=== PATIENT | female | born 1995 ===

== ENCOUNTER 2019-01-04 21:33 | Emergency (ER) | payer SELFPAY ==
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
[2019-01-04 23:02] VITALS: BP 146/83
--- NOTE | 2019-01-05 00:18 | Cat Scan Report ---
Head CT without intravenous contrast INDICATION: Headache and neck pain COMPARISON: None FINDINGS: The ventricles are normal in size and position. No hemorrhage or extra-axial fluid collecti on. No edema or mass effect. No focal infarct seen. Portions of the sinuses visualized are clear. No skull fracture identified. IMPRESSION: Negative head CT Automated exposure control was utilized to diminish radiation dose Signer Name: Lul Frye MD Signed: 01/05/2019 12:13 AM Workstation Name: [id number]
--- NOTE | 2019-01-05 01:19 | Cat Scan Report ---
CT NECK 01/04/2019 HISTORY: Neck pain. FINDINGS: Unenhanced CT images of the soft tissues of the neck were obtained. Images are evaluated in the axial, coronal, and sagittal planes. Is no evidence of acute abnormality. Vertebral body alignment is normal no evidence of acute traumatic injury. Paraspinal soft tissues and soft tissues of the are unremarkable. There is no evidence of abnormal ne ck mass, fluid collection, or inflammation. Scattered normal-sized lymph nodes are present bilaterally. IMPRESSION: No acute or significant abnormality. All CT scans at this location are performed using dose reduction to ALARA by means of automated expos ure control. Signer Name: Kedar Harpre MD Signed: 01/05/2019 1:15 AM Workstation Name: [id number]
[2019-01-05] MEDS ORDERED: PERCOCET 5/325 PO ONE (04:18)
[2019-01-05] MEDS ORDERED: ZOFRAN ODT PO ONE (04:18)
[2019-01-05] MEDS ORDERED: TORADOL IM ONE (04:18)
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
== END 2019-01-05 04:45 | disposition home or self-care (01) ==
LOC: ED 21:33
DX: J01.10 Acute frontal sinusitis, unspecified (principal); M62.838 Other muscle spasm
CPT/HCPCS: 70450; 70490; 96372; 99283; J1885; Q0162

== ENCOUNTER 2020-05-03 22:02 | Emergency (ER) | payer SELFPAY ==
[2020-05-03 22:38] VITALS: BP 122/76
[2020-05-03] MEDS ORDERED: ONDANSETRON 4 MG ODT TAB PO ONE (23:54)
[2020-05-03] MEDS ORDERED: oxyCODONE /ACETAMINOPHEN 5-325MG TAB PO ONE (23:54)
[2020-05-03] MEDS ORDERED: predniSONE 20 MG TAB PO ONE (23:54)
[2020-05-03] MEDS ORDERED: IBUPROFEN 600 MG TAB PO ONE (23:54)
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
== END 2020-05-04 01:20 | disposition home or self-care (01) ==
LOC: ED 22:02
DX: S86.911A Strain of unspecified muscle(s) and tendon(s) at lower leg level, right leg, initial encounter (principal); M19.09 Primary osteoarthritis, other specified site; M62.838 Other muscle spasm; Z79.899 Other long term (current) drug therapy; X58.XXXA Exposure to other specified factors, initial encounter; Y93.89 Activity, other specified; Y92.89 Other specified places as the place of occurrence of the external cause; Y99.8 Other external cause status
CPT/HCPCS: 99283; J7512; Q0162

== ENCOUNTER 2021-01-01 19:10 | Outpatient (CLI) | payer MEDICAID ==
[2021-01-02] MEDS ORDERED: LACTATED RINGERS 1,000 ML IV ONE (01:48)
[2021-01-02 02:15] LABS: Bilirubin,Urine NEG (Negative); Blood,Urine NEG (Negative); Color,Urine Yellow (Yellow); Mucus,Urine 3+ /HPF
[2021-01-02 02:22] LABS: Amphetamine Screen,Urine PRESUMPTIVE NEGATIVE; Benzodiazepines Screen,Urine PRESUMPTIVE NEGATIVE; Cannabinoid Screen,Urine PRESUMPTIVE POSITIVE; Cocaine Screen,Urine PRESUMPTIVE NEGATIVE; Methadone Screen,Urine PRESUMPTIVE NEGATIVE; Opiate Screen,Urine PRESUMPTIVE NEGATIVE
[2021-01-02] MEDS ORDERED: MAGNESIUM HYDROXIDE (MOM) ORAL LIQD UDC PO PRN (05:17)
[2021-01-02] MEDS ORDERED: ACETAMINOPHEN 325 MG TAB PO PRN (05:17)
[2021-01-02] MEDS ORDERED: ONDANSETRON 4 MG/2 ML INJ IV PRN (05:17)
[2021-01-02] MEDS ORDERED: DOCUSATE SODIUM 100 MG CAP PO PRN (05:17)
[2021-01-02] MEDS ORDERED: SIMETHICONE 80 MG CHEW TAB PO PRN (05:17)
[2021-01-02] MEDS ORDERED: ALUM-MAG HYDROXIDE-SIMETHICONE 200-200-20MG/5ML ORAL LIQD 30 ML PO PRN (05:17)
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
--- NOTE | 2021-01-02 06:54 | Ultrasound Report ---
ULTRASOUND OBSTETRIC LIMITED ULTRASOUND BIOPHYSICAL PROFILE INDICATION / CLINICAL INFORMATION: wellbeing. Clinical Gestational Age (GA) in weeks, days: 32, 1 TECHNIQUE: Transabdominal. COMPARISON: None available. FINDINGS: BREATHING MOVEMENT = 2 GROSS BODY MOVEMENT = 2 TONE = 2 QUALITATIVE AMNIOTIC FLUID VOLUME = 2 TOTAL BIOPHYSICAL SCORE = 8/8 HEART RATE (beats per minute): 138 AMNIOTIC FLUID INDEX (cm) = 5.4 (normal = 7-24 cm) PRESENTATION: Cephalic. ADDITIONAL FINDINGS: anatomic measurements yield an estimated sonographic age of 30 weeks, 2 da ys gestational age. Placenta is anterior with no sonographic evidence for placental abruption. IMPRESSION: 1. Biophysical Score = 8/8 2. Below normal amniotic fluid index of 5.4 cm. 3. No sonographic evidence for placental abruption. Signer Name: Martha Valderrama MD Signed: 01/02/2021 6:50 AM Workstation Name: [id number]
[2021-01-02 08:30] LABS: Basophils % (Auto) 0.4 % (0.0-1.8); Eosinophils % (Auto) 0.3 % (0.0-4.3); Hematocrit 33.3 % (30.3-42.9); Lymphocytes # (Auto) 2.8 K/mm3 (1.2-5.4); Lymphocytes % (Auto) 28.9 % (13.4-35.0); Mean Corpuscular HGB Conc 33 % (30-34); Mean Corpuscular Volume 91 fl (79-97); Monocytes # (Auto) 0.7 K/mm3 (0.0-0.8); Monocytes % (Auto) 6.7 % (0.0-7.3); Platelet Count 220 K/mm3 (140-440); Red Blood Count 3.66 M/mm3 (3.65-5.03); Red Cell Distribution Width 14.4 % (13.2-15.2)
[2021-01-02 08:50] LABS: Alanine Aminotransferase 6 units/L (7-56); Albumin 3.2 g/dL (3.9-5); Blood Urea Nitrogen 3 mg/dL (7-17); Hemolysis Index 3
[2021-01-02 08:51] LABS: BUN/Creatinine Ratio 8
[2021-01-02] MEDS: BETAMET ACET/BETAMET NA PH 6 MG/ML INJ 5 ML MDV IM SCH (09:24)
[2021-01-02] MEDS: PRENATAL VIT27-FE FUMARATE-FOLIC ACID VIT TAB PO SCH (09:24)
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
[2021-01-02] MEDS: LACTATED RINGERS 1,000 ML IV SCH ×2 (09:37→21:08)
[2021-01-02] MEDS ORDERED: MORPHINE 4 MG/1 ML INJ IV PRN (19:37)
[2021-01-03] MEDS: BETAMET ACET/BETAMET NA PH 6 MG/ML INJ 5 ML MDV IM SCH (10:01)
[2021-01-03] MEDS: PRENATAL VIT27-FE FUMARATE-FOLIC ACID VIT TAB PO SCH (10:03)
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
[2021-01-03] MEDS ORDERED: POTASSIUM CHLORIDE ER 20 MEQ TAB PO NR (11:00)
[2021-01-03] MEDS ORDERED: CYCLOBENZAPRINE 10 MG TAB PO PRN (11:00)
[2021-01-03 13:30] VITALS: BP 122/73
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
== END 2021-01-03 14:02 | disposition home or self-care (01) ==
LOC: TRG 01-02 00:18 → APU 01-02 00:27 → LD 01-02 06:06 → TRG 01-03 14:02
PROVIDERS: ATTEND Obstetrics & Gynecology
DX: O62.9 Abnormality of forces of labor, unspecified (principal); O41.03X0 Oligohydramnios, third trimester, not applicable or unspecified; O26.893 Other specified pregnancy related conditions, third trimester; R10.31 Right lower quadrant pain; O99.513 Diseases of the respiratory system complicating pregnancy, third trimester; J45.909 Unspecified asthma, uncomplicated; Z79.899 Other long term (current) drug therapy; Z3A.32 32 weeks gestation of pregnancy; Z20.822 Contact with and (suspected) exposure to COVID-19; Z87.891 Personal history of nicotine dependence; V49.9XXA Car occupant (driver) (passenger) injured in unspecified traffic accident, initial encounter; Y93.89 Activity, other specified; Y92.89 Other specified places as the place of occurrence of the external cause; Y99.8 Other external cause status
CPT/HCPCS: 36415; 59025; 76816; 76819; 80053; 80307; 81001; 84112; 85025; 86850; 86900; 86901; 87086; 96361; 96365; 96366; 96368; 96372; J0702; J2270; J2405; J7120; U0003; 96360